=== PATIENT | male | born 1960 | race Hispanic/Latino ===

== ENCOUNTER 2016-08-14 21:08 | Emergency (ER) | payer SELFPAY ==
--- NOTE | 2016-08-14 22:02 | C.PDOC ---
History Of Present Illness 55 y/o M c no PMHx p/w L leg swelling and pain x 3 days. He denies trauma, fever , injury, chest pain, dyspnea, erythema, discolored toes. Took 2 left over Percocets at home, states he has no more pain medication. Time Seen by Provider: 08/14/16 21:35 Chief Complaint (Nursing): Lower Extremity Problem/Injury Past Medical History Vital Signs: Last Vital Signs Temp 98.8 F 08/14/16 21:25 Pulse 80 08/14/16 21:25 Resp 14 08/14/16 21:25 BP 104/56 L 08/14/16 21:25 Pulse Ox 97 08/14/16 22:15 - Medical History PMH: Depression Denies: Diabetes, Hepatitis, HIV, HTN, Seizures, Sexually Transmitted Disease - [facility] Procedures DETOXIFICATION SERVICES FOR SUBSTANCE ABUSE TREATMENT (04/30/16) MEDS MGMT FOR SUBSTANCE ABUSE TREATMENT, METHADONE MAINT (04/30/16) Family History: States: Unknown Family Hx - Social History Hx Alcohol Use: No Hx Substance Use: Yes (Opiates) - Immunization History Hx Tetanus Toxoid Vaccination: No Hx Influenza Vaccination: No Hx Pneumococcal Vaccination: No Review Of Systems Except As Marked, All Systems Reviewed And Found Negative. Constitutional: Negative for: Fever Cardiovascular: Negative for: Chest Pain Respiratory: Negative for: Shortness of Breath Physical Exam - Physical Exam Additional Physical Exam Comments: Constitutional: No acute distress. Head: Normocephalic. Atraumatic. Eyes: PERRL. ENT: Moist mucous membranes. Neck: Supple. Cardiovascular: Regular rate. Chest: No tenderness. Respiratory: Clear to auscultation bilaterally. GI: Soft. Nontender. Nondistended. Back: No CVA tenderness. Musculoskeletal: L lower leg and foot swollen without focal tenderness. No erythema, duskiness, discoloration. Skin: Bilateral legs equally warm. Neurologic: Alert, no focal deficit. ED Course And Treatment O2 Sat by Pulse Oximetry: 97 Medical Decision Making Medical Decision Making: XRs rule out fracture. Percocet for pain. Will require return tomorrow for doppler. Disposition - Disposition Disposition: HOME/ ROUTINE Disposition Time: 22:31 Condition: STABLE Additional Instructions: Return in the morning at 9am for a doppler to rule out a clot in the leg. Prescriptions: Ibuprofen [Motrin] 600 mg PO Q6 #25 tab Instructions: Leg Edema (ED) - Clinical Impression Clinical Impression: Leg swelling
[2016-08-14] MEDS ORDERED: Oxycodone/Acetaminophen 5/325 mg Tab PO STA (22:07)
[2016-08-14] MEDS ORDERED: Oxycodone/Acetaminophen 5/325 mg Tab ONE (22:19)
[2016-08-14] MEDS ORDERED: Enoxaparin 80 mg Syringe SC STA (22:32)
[2016-08-14] MEDS ORDERED: Enoxaparin 80 mg Syringe ONE (22:46)
[2016-08-14 22:50] VITALS: BP 122/76; PULSE 79; RESP 16; TEMP 98.2; O2SAT 99
--- NOTE | 2016-08-15 08:49 | RAD ---
PROCEDURE: Left Foot Radiographs. HISTORY: swelling, pain COMPARISON: None available. FINDINGS: BONES: Irregularity about the distal 2nd metatarsal appears to reflect degenerative change rather than nondisplaced fracture. No acute displaced fracture. JOINTS: No dislocation. SOFT TISSUES: Soft tissue swelling. No evidence of radiopaque foreign body. OTHER FINDINGS: None. IMPRESSION: Irregularity about the distal 2nd metatarsal appears to reflect degenerative change rather than nondisplaced fracture. Correlate for point tenderness. Soft tissue swelling. Study marked for PA review.
--- NOTE | 2016-08-15 08:50 | RAD ---
PROCEDURE: Radiographs of the left tibia and fibula. HISTORY: swelling, pain COMPARISON: None available. TECHNIQUE: Frontal and lateral views obtained. FINDINGS: BONES: No acute displaced fracture. JOINT SPACES: No dislocation. OTHER FINDINGS: Soft tissue swelling. No evidence of radiopaque foreign body. IMPRESSION: Soft tissue swelling. No acute displaced fracture, dislocation, or significant joint effusion identified. If symptoms persist, or if there is continued clinical concern, x-ray follow-up in 7-10 days should be considered.
== END 2016-08-14 22:49 | disposition home or self-care (01) ==
LOC: C.ER 21:08
DX: M79.89 Other specified soft tissue disorders (principal)
CPT/HCPCS: 73590; 73630; 96372; 99283; J1650